=== PATIENT | female | born 2005 | race Caucasian/White ===

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

== ENCOUNTER 2024-12-03 17:25 | Emergency (ER) | payer BC, SELFPAY ==
[2024-12-03 17:28] VITALS: BP 134/83; PULSE 111; RESP 15; TEMP 36.8; O2SAT 93
[2024-12-03 17:32] VITALS: BP 134/83; PULSE 111; RESP 15; TEMP 36.8; O2SAT 93
--- NOTE | 2024-12-03 17:49 | W.ED.GENAD ---
Discharge Plan Disposition Patient Disposition: Eloped Discharge Details Clinical Impression: Headache Primary Care Provider: Axel Brito ED Provider: Joycelyn Santos Home Meds and New Rx's Prescriptions: No Action ParaGard T 380A 380 square mm intrauterine device 1 device IY HPI General Date/Time Provider Initiated Documentation: 12/03/24 17:27. HPI Narrative: Catherine is a 19year old female who presents to the emergency department today for evaluation of headaches. She reports that she developed cold symptoms before [place], including congestion, sore throat, and cough. Symptoms have since resolved. Starting 4 days ago she has had daily headache that get worse throughout the day, this is accompanied by nausea and occasional dizziness when going from laying to sitting that resolves with laying back down. Headaches include both frontal and occipital headaches, include sensitivity to light. She does report mild right ear pain. She denies associated fever/chills, vision changes, tinnitus, hearing changes,. Past medical history is significant for anxiety, pseudotumor cerebri related to hormonal control. No recent chiropractor manipulation Physical exam reassuring. Joselin is alert and oriented, no acute distress. PERRL, EOMs intact. Cranial nerves II through XII intact as tested. TMs pearly briscoe, translucent. No cervical or submandibular lymphadenopathy. Neck is supple, full painless range of motion. Easy work of breathing, lung sounds clear bilaterally. Normal heart sounds. Abdomen soft, nondistended, nontender to palpation. 5 out of 5 muscle strength upper and lower extremities. Normal finger finger, finger-nose, heel zazueta, Romberg, tandem gait, rapid alternating movements. D/dx includes but is not limited to: Migraine headache, IIH, dehydration, severe anemia, electrolyte imbalance. No red flags concerning for serious etiology of headache such as intracranial hemorrhage, cervical artery dissection, or meningitis. Reassuring physical exam, no neurofindings. POCUS exam performed to evaluate for papilledema, optic nerve within normal limits bilaterally. I did review PCP records. I independently interpreted the following tests: CBC reassuring, only mild leukocytosis, consistent with stress demargination. BMP unremarkable. While in the emergency department, Catherine received migraine cocktail, including Toradol, Benadryl, and Reglan. She reported that she was feeling better, eloped from department before she was able to be reassessed. Workup today reassuring, consistent with migraine headache. I did consider giving steroids to prevent migraine recurrence, however as patient has significant history of anxiety and sensitivity to medication, this would most likely cause more side effects than benefits. Related Data Home Medications ?Medication ?Instructions ?Recorded ?Confirmed copper 380 square mm intrauterine 1 device intrauterine 01/24/20 11/17/23 device (ParaGard T 380A) Allergies Allergy/AdvReac Type Severity Reaction Status Date / Time No Known Allergies Allergy Unverified 12/03/24 17:34 General Stated Complaint: Headache YOSEPH: 3 Review of Systems Narrative: see HPI Exam Const General: cooperative, healthy appearing, comfortable, no acute distress, well developed and well groomed Nutritional Appearance: average body habitus Orientation: alert and oriented x3 HENMT Ears: hearing grossly normal bilaterally, external ears normal and TM's normal bilaterally General nose exam: external nose normal Face and sinus: normal facial exam Neck Neck: normal visual inspection, full ROM and no lymphadenopathy Resp Effort & Inspection: normal respiratory effort and able to speak in complete sentences Auscultation: clear to auscultation bilaterally Cardio Rate: regular rate Rhythm: regular rhythm GI Inspection: normal to inspection and non-distended Palpation: soft, not firm, not rigid and nontender Neuro General: patient alert, patient oriented x3, gait normal, tone normal, moves all extremities, no meningeal signs, no focal motor deficits and CN's II-XI intact bilaterally Cranial Nerves: CN's II-XI intact bilaterally, PERRL, EOM intact bilaterally, no nystagmus and facial strength normal Cognition: normal cognition Speech: speech normal Gait: normal gait Motor: muscle tone normal throughout and strength 5/5 throughout Coordination: [id number]-[id number] test normal, [id number]-ug-[id number] test normal, Romberg test normal, tandem gait normal, Does not sway with eyes open and rapid alternating movement UE normal Course Vital Signs Vital signs: Vital Signs Temperature 36.8 C 12/03/24 17:28 Pulse 111 H 12/03/24 17:28 Respiratory Rate 15 12/03/24 17:28 Blood Pressure 134/83 12/03/24 17:28 Pulse Oximetry 93 12/03/24 17:28 Temperature 36.8 C 12/03/24 17:32 Pulse 111 H 12/03/24 17:32 Respiratory Rate 15 12/03/24 17:32 Blood Pressure 134/83 12/03/24 17:32 Blood Pressure Position Sitting 12/03/24 17:32 Pulse Oximetry 93 12/03/24 17:32 Oxygen Delivery Method Room Air 12/03/24 17:32 Oxygen Flow Rate 0 12/03/24 17:32 Lab/Test Results Lab/Test Results: POC- Test(urine) Negative Medical Decision Making Quality:SDOH Health Related Social Needs: No Data to Display PFSH All Active Problems Headache (Acute) PCB (post coital bleeding) (Acute) Encounter for screening examination for sexually transmitted disease (Acute) Vaginal discharge (Acute) Pelvic pain (Acute) Anxiety (Chronic) General counseling and advice for contraceptive management (Acute) 09/11/2019 after Nexplanon removed patient encouraged to consider Depo-Provera shot or NuvaRing. Nexplanon removal (Acute) 09/11/2019 removed in the emergency room approximately 10 hours after insertion secondary to patient's adverse emotional response to it being in place. Presence of subdermal contraceptive implant (Acute) nexplanon inserted 09/11/19 Social History Smoking/Tobacco Use Status: Current every day Tobacco Type: e-cigarettes Smoking risk assessment performed?: Yes Alcohol Intake: never Drug use: Never Sexually active: Yes Do you think of yourself as: straight/heterosexual Current gender identity: female Do you feel safe at home: Yes Do you feel safe in your relationship?: Yes Female Reproductive History Menstrual Age of Menarche: 11 Duration of menses: 3-5 days control method: copper IUCD History History 0 Para Hx # Term Pregnancies Multiple births Hx # Pregnancies Ectopic pregnancies AB induced Hx Number of Living Children AB spontaneous
[2024-12-03] MEDS: Metoclopramide 10 MG/2 ML VIAL IVP (18:31)
[2024-12-03] MEDS: Ketorolac 15 MG/ML VIAL IVP (18:31)
[2024-12-03] MEDS: diphenhydrAMINE 50 MG/ML VIAL 25 MG IVP (18:31)
--- NOTE | 2024-12-03 18:35 | W.EDPROG ---
Date of service: 12/03/24 Time of Service: 18:36 Medical Decision Making I have dissipated this patient's evaluation in the emergency department. Please see separate advanced practice providers notes. Her bedside ultrasound was not consistent with elevated intracranial hypertension. Quality:SDOH Health Related Social Needs: No Data to Display Discharge Plan Discharge Details Chief Complaint: Headache Primary Care Provider: Axel Brito ED Provider: Joycelyn Santos Home Meds and New Rx's Prescriptions: No Action ParaGard T 380A 380 square mm intrauterine device 1 device IY POCUS Exam (ED) Limited Ocular Exam DATE OF EXAM: 12/03/24 TIME OF EXAM: 18:37 PROVIDER THAT PERFORMED THE STUDY: Stephan Simms IS THIS A REPEAT EXAM DURING THIS ENCOUNTER: No OCULAR EXAM: Right eye INDICATION FOR RIGHT EYE EXAM: Headache VISUALIZED STRUCTURES: Right optic nerve and Right lens. PERTINENT FINDINGS/IMPRESSION OF THE RIGHT EYE: No apparent abnomalities and Left eye INDICATION FOR LEFT EYE EXAM: Headache. VISUALIZED STRUCTURES: Left optic nerve and Left lens PERTINTINENT FINDINGS/IMPRESSION OF THE LEFT EYE: No apparent abnormalities: INCIDENTAL FINDING: Normal optic nerve sheath diameter Exam complete
[2024-12-03 18:37] LABS: HCT 39.2 % (36.0-46.0); MCH 28.1 pg (27.0-33.0); MCHC 33.2 % (32.0-36.0); MCV 85 fL (80-95); MPV 9.8 fL (8.0-11.0); Platelet Count 342 10^3/uL (130-400); RBC 4.62 10^6/uL (3.93-5.22); RDW 11.9 % (11.7-14.6); RDW-SD 36.8 fL; WBC 10.94 10^3/uL (4.4-10.8)
[2024-12-03 18:46] LABS: Anion Gap 8.4 mmol/L (3-11); BUN 10 mg/dL (7-18); CO2 26.6 mmol/L (21.0-32.0); CREATININE 0.7 mg/dL (0.55-1.02); Calcium 9.2 mg/dL (8.5-10.1); Chloride 106 mmol/L (98-107); Glucose 91 mg/dL (74-106); Potassium 3.6 mmol/L (3.5-5.1); Sodium 141 mmol/L (136-145)
--- OUTSIDE RECORDS SUMMARY | 2024-12-03 19:11 | XMS_ITS | Clinical Summary ---
Author Organization [facility] Address [address] [place] [address] Care Team Providers Care Public Information Officer Name Role Phone Unavailable Primary Care Provider Unavailabl e Social History Tobacco Use Types Packs/Day Years Used Date Smoking Tobacco: Never Assessed Comments Unknown Sex and Gender Information Value Date Recorded Sex Assigned at Not on file Legal Sex Female 1:41 EST Gender Identity Not on file Sexual Orientation Not on file Plan of Treatment Health Maintenance Due Date Last Done Comments Hepatitis C Screen 2004 Hepatitis B Vaccine (1 of 3 - 19+ 3-dose series) 03/16 COVID-19 Vaccine ( season) 2024
--- OUTSIDE RECORDS SUMMARY | 2024-12-03 19:11 | XMS_ITS | Referral Summary ---
Author Organization [facility] Address [address] [place] [address] Care Team Providers Care Rn Urology Name Role Phone Unavailable Primary Care Provider Unavailabl e Social History Tobacco Use Types Packs/Day Years Used Date Smoking Tobacco: Never Assessed Comments Unknown Sex and Gender Information Value Date Recorded Sex Assigned at Not on file Legal Sex Female 1:41 EST Gender Identity Not on file Sexual Orientation Not on file Plan of Treatment Not on file
--- OUTSIDE RECORDS SUMMARY | 2024-12-03 19:11 | XMS_ITS | Encounter Summary ---
Author Organization [facility] Address [address] [place] [address] Care Team Providers Care Billiard Table Repairer Name Role Phone Unavailable Primary Care Provider Unavailabl e Encounter Details Date Type Department Care Team (Late st Contact Info) Description 11/18/2023 Lab Requisition [facility] Pathology & Laboratory Medicine - Main [place] [address] [place] [address] Outr Resulting Lab, Provider Social History Tobacco Use Types Packs/Day Years Used Date Smoking Tobacco: Never Assessed Comments Unknown Sex and Gender Information Value Date Recorded Sex Assigned at Not on file Legal Sex Female 1:41 EST Gender Identity Not on file Sexual Orientation Not on file documented as of this encounter Plan of Treatment Not on file documented as of this encounter Procedures Procedure Name Priority Date/Time Associated Diagnosis Comments CHLAMYDIA/N. GONORRHOEAE AMPLIFIED NUCLEIC ACID Routine 11/17/2023 16:30 EST documented in this encounter Results * CHLAMYDIA/N. GONORRHOEAE AMPLIFIED RNA (11/17/2023 16:30 EST) Neisseria gonorrhoeae Result Negative Negative 11/19/2023 13:54 EST [facility] Chlamydia trachomatis Result Negative Negative 11/19/2023 13:54 EST [facility] Swab ENDOCERVICAL STRUCTURE / Unknown 11/17/2023 16:30 EST 11/18/2023 17:09 EST us Provider Outr Resulting Lab MICROBIOLOGY - GENER AL ORDERABLES Final Result [facility] [address] [place] [address] documented in this encounter Visit Diagnoses Not on filedocumented in this encounter
[2024-12-03 19:17] VITALS: BP 101/57; PULSE 78; RESP 18; O2SAT 97
--- NOTE | 2024-12-06 14:27 | NUR.NOTE ---
Nursing Note: Reviewed chart as part of [facility] investigation.
== END 2024-12-03 19:40 | disposition left against medical advice (07) ==
PROVIDERS: Emergency Provider Nurse Practitioner Family; PCP Internal Medicine
DX: R51.9 Headache, unspecified (principal)
CPT/HCPCS: 00123; 76512; 80048; 81025; 85027; 87426; 96374; 96375; 99284; J1200; J1885; J2765

== ENCOUNTER 2025-07-03 18:11 | Outpatient (REF) | payer SELFPAY ==
[2025-07-04 11:45] LABS: Chlamydia Result Negative (Negative); GC Result Negative (Negative)
== END 2025-07-03 18:12 | disposition home or self-care (01) ==
LOC: LBN 18:11
PROVIDERS: PCP Internal Medicine; Visit Provider Obstetrics & Gynecology
DX: Z11.3 Encounter for screening for infections with a predominantly sexual mode of transmission (principal); Z12.4 Encounter for screening for malignant neoplasm of cervix
CPT/HCPCS: 87491; 87591; 88142; 87480; 87510; 87660